=== PATIENT | male | born 1955 | race Caucasian/White ===

== ENCOUNTER 2021-10-09 10:17 | Outpatient (CLI) | payer MEDICARE | END 2021-10-09 10:18 | disposition home or self-care (01) | LOC: RAD 10:17 | PROVIDERS: ATTEND Internal Medicine Critical Care Medicine | DX: R06.00 Dyspnea, unspecified (principal) | CPT/HCPCS: 71046 ==

== ENCOUNTER 2022-01-31 10:48 | Outpatient (CLI) | payer MEDICARE ==
[2022-01-31 12:47] LABS: #Eosinphils 0.2 10x3/uL (0.0-0.5); #Monocytes 0.6 10x3/uL (0.0-1.1); #Neutrophils 5.9 10x3/uL (1.5-8.4); %Basophils 0.3 % (0.0-2.0); %Eosinophils 2.6 % (0.0-6.0); %Lymphocytes 21.5 % (18.0-47.0); %Monocytes 6.6 % (0.0-10.0); %Neutrophils 68.1 % (40.0-75.0); Hemoglobin 14.7 g/dL (13.5-17.5); Mean Corpuscular HGB CONC 32.5 g/dL (32.0-36.0); Mean Corpuscular Hemoglobin 28.3 pg (27.0-33.0); Mean Corpuscular Volume 87.3 fl (81.2-95.1); Mean Platelet Volume 10.3 fl (7.4-10.4); Platelet Count 274 10x3/uL (150-450); Red Blood Cell (RBC) Count 5.19 10x6/uL (4.32-5.72); White Blood Cell (WBC) Count 8.6 10x3/uL (3.5-10.5)
[2022-01-31 12:53] LABS: Prothrombin Time 10.6 sec (9.5-12.1)
[2022-01-31 13:12] LABS: Anion Gap 15 mmol/L (10-20); BUN (Urea Nitrogen) 13 mg/dL (8.4-25.7); Calc. Creatinine Clearance 0 mL/min (70-130); Calcium 9.8 mg/dL (7.8-10.44); Carbon Dioxide 24 mmol/L (23-31); Chloride 105 mmol/L (98-107); Estimated GFR 95; Glucose 98 mg/dL (80-115); Potassium 4.8 mmol/L (3.5-5.1); Sodium 139 mmol/L (136-145)
== END 2022-01-31 10:49 | disposition home or self-care (01) ==
LOC: LABBT 10:48
PROVIDERS: ATTEND Orthopaedic Surgery
DX: Z01.818 Encounter for other preprocedural examination (principal); M17.32 Unilateral post-traumatic osteoarthritis, left knee; Z20.822 Contact with and (suspected) exposure to COVID-19
CPT/HCPCS: 80048; 85025; 85610; 87081; 87811; 93005; 93010

== ENCOUNTER 2022-02-04 05:33 | Inpatient (IN) | payer OTHER, MEDICARE ==
[2022-01-31 14:37] VITALS: BMI 36.6
[2022-02-04] MEDS ORDERED: Tranexamic Acid 1,000 MG/10 ML VIAL ONE (06:08)
[2022-02-04] MEDS ORDERED: Sodium Chloride 0.9% 100 ML ONE ×2 (06:08→06:51)
[2022-02-04] MEDS ORDERED: fentaNYL Citrate/PF 100 MCG/2 ML SYRINGE ONE ×2 (06:11→08:15)
[2022-02-04] MEDS ORDERED: VANCOMYCIN 2 GRAM/500 ML BAG 2 GM in Premix Bag 1 BAG IVPB SCH ×2 (06:15→20:00)
[2022-02-04] MEDS ORDERED: Bupivacaine PF 0.5% 30 ML VIAL ONE (06:27)
[2022-02-04] MEDS ORDERED: Promethazine HCl 25 MG/ML VIAL IM PRN ×3 (06:36→09:04)
[2022-02-04] MEDS ORDERED: Promethazine HCl 25 MG/ML VIAL IVPB PRN (06:36)
[2022-02-04] MEDS ORDERED: Morphine Sulfate 2 MG/ML SYRINGE SLOW IVP PRN (06:36)
[2022-02-04] MEDS ORDERED: Ondansetron HCl/PF 4 MG/2 ML Vial IVP PRN (06:36)
[2022-02-04] MEDS ORDERED: HYDROmorphone 2 MG/ML VIAL SLOW IVP PRN (06:36)
[2022-02-04] MEDS ORDERED: Ketorolac Tromethamine 30 MG/ML VIAL IVP PRN (06:36)
[2022-02-04] MEDS ORDERED: Meperidine HCl/PF 25 MG/ML VIAL SLOW IVP PRN ×2 (06:36)
[2022-02-04] MEDS ORDERED: Midazolam HCl 2 mg/2 ml Vial ONE (06:39)
[2022-02-04] MEDS ORDERED: Fentanyl 100 MCG/2 ML VIAL ONE ×2 (06:39→10:05)
[2022-02-04] MEDS ORDERED: PROPOFOL 200 MG/20 ML VIAL ONE (06:42)
[2022-02-04] MEDS ORDERED: Lidocaine 1% MPF 2 ML VIAL ONE (06:42)
[2022-02-04] MEDS ORDERED: Ondansetron PF 4 MG/2 ML Vial ONE (06:42)
[2022-02-04] MEDS ORDERED: Bupivacaine HCl 0.5%/Epinephrine 1:200,000/PF 30 ml Vial ONE (06:42)
[2022-02-04] MEDS ORDERED: Dexamethasone 20 MG/5 ML VIAL ONE (06:42)
[2022-02-04] MEDS ORDERED: Levofloxacin 500 mg/D5W 100 ml Premix Bag ONE (06:51)
[2022-02-04] MEDS ORDERED: CEFAZOLIN 2 GM VIAL ONE (06:51)
[2022-02-04] MEDS ORDERED: Fentanyl 100 MCG/2 ML VIAL IV PRN (07:06)
[2022-02-04] MEDS ORDERED: Ropivacaine 0.2% 550 ML 550 ML NERVE BLCK SCH (07:15)
[2022-02-04] MEDS ORDERED: HYDROcodone/Acetaminophen 10/325 mg Tablet PO PRN (07:15)
[2022-02-04] MEDS ORDERED: traMADol HCl 50 MG TAB PO PRN ×2 (07:15)
[2022-02-04] MEDS ORDERED: Ondansetron PF 4 MG/2 ML Vial IVP PRN ×2 (07:15→09:04)
[2022-02-04] MEDS ORDERED: Zolpidem Tartrate 5 MG TAB PO PRN ×2 (07:15→09:04)
[2022-02-04] MEDS ORDERED: Acetaminophen 325 MG TAB PO PRN (09:04)
[2022-02-04] MEDS ORDERED: diphenhydrAMINE 25 MG CAP PO PRN (09:04)
[2022-02-04] MEDS ORDERED: Aspirin 81 mg Enteric Coated Tablet PO SCH (10:00)
[2022-02-04] MEDS: Ketorolac Tromethamine 30 MG/ML VIAL IVP SCH ×2 (12:41→17:40)
[2022-02-04] MEDS: Sodium Chloride 0.9% 1,000 ML IV SCH ×2 (12:43→18:49)
[2022-02-04] MEDS ORDERED: Dextrose 50% Abboject 50 ML SYRINGE SLOW IVP PRN (12:44)
[2022-02-04] MEDS ORDERED: Dextrose 5% in Water 1,000 ML IV PRN (12:44)
[2022-02-04] MEDS ORDERED: HumaLOG 300 UNITS/3 ML VIAL SC PRN (12:44)
[2022-02-04] MEDS ORDERED: Amlodipine 10 MG TAB PO SCH (12:45)
[2022-02-04] MEDS ORDERED: Labetalol HCl 100 MG/20 ML VIAL SLOW IVP PRN (13:16)
[2022-02-04] MEDS ORDERED: Albuterol Sulfate 2.5 mg/3 ml Neb NEB PRN (13:16)
[2022-02-04] MEDS ORDERED: Pioglitazone HCl 45 MG TAB PO SCH (13:30)
[2022-02-04] MEDS ORDERED: Insulin Glargine 30 UNITS/0.3 ML VIAL SC SCH (13:30)
[2022-02-04] MEDS ORDERED: Polyethylene Glycol 3350 17 GM Packet PO SCH (13:30)
[2022-02-04] MEDS: CEFAZOLIN 2 GM in Sodium Chloride 0.9% 100 ML IVPB SCH (13:37)
[2022-02-04] MEDS: metFORMIN 500 MG TAB PO SCH (17:40)
[2022-02-04] MEDS: Aspirin 81 mg Enteric Coated Tablet PO SCH (20:16)
[2022-02-04] MEDS: HYDROcodone/Acetaminophen 10/325 mg Tablet PO PRN (20:24)
[2022-02-04] MEDS: Atorvastatin Calcium 20 MG TAB PO SCH (20:34)
[2022-02-05] MEDS: CEFAZOLIN 2 GM in Sodium Chloride 0.9% 100 ML IVPB SCH (01:09)
[2022-02-05] MEDS: Ketorolac Tromethamine 30 MG/ML VIAL IVP SCH ×4 (01:10→17:02)
[2022-02-05 06:03] LABS: Mean Corpuscular HGB CONC 32.7 g/dL (32.0-36.0); Mean Corpuscular Hemoglobin 29.8 pg (27.0-31.0); Mean Corpuscular Volume 91.1 fL (78.0-98.0); Platelet Count 202 thou/uL (130-400); RBC Distribution Width 12.9 % (11.5-14.5); Red Blood Cell (RBC) Count 4.05 mill/uL (4.70-6.10); White Blood Cell (WBC) Count 10.4 thou/uL (4.8-10.8)
[2022-02-05 06:23] LABS: Anion Gap 12 mmol/L (10-20); BUN (Urea Nitrogen) 13 mg/dL (8.4-25.7); Calc. Creatinine Clearance 162 mL/min (70-130); Calcium 8.9 mg/dL (7.8-10.44); Carbon Dioxide 24 mmol/L (23-31); Chloride 106 mmol/L (98-107); Estimated GFR 96; Glucose 154 mg/dL (80-115); Potassium 4.3 mmol/L (3.5-5.1); Sodium 138 mmol/L (136-145)
[2022-02-05] MEDS: Sodium Chloride 0.9% 1,000 ML IV SCH ×2 (06:28→15:20)
[2022-02-05] MEDS: Mometasone 200 MCG/Formoterol 5 MCG 120 PUFF INHALER INH SCH ×2 (06:57→18:48)
[2022-02-05] MEDS: Multivitamin W/ Minerals 1 TAB PO SCH ×2 (08:40→09:20)
[2022-02-05] MEDS: Aspirin 81 mg Enteric Coated Tablet PO SCH ×2 (08:41→21:30)
[2022-02-05] MEDS: metFORMIN 500 MG TAB PO SCH ×2 (08:41→17:01)
[2022-02-05] MEDS: Ferrous Gluconate 324 MG TAB PO SCH ×2 (08:41→17:01)
[2022-02-05] MEDS: HYDROcodone/Acetaminophen 10/325 mg Tablet PO PRN ×2 (08:42→15:16)
[2022-02-05] MEDS: Verapamil 80 MG TAB PO SCH (08:42)
[2022-02-05] MEDS: Senokot S 8.6-50 MG TAB PO SCH ×2 (08:42→21:30)
[2022-02-05] MEDS: Insulin Glargine 30 UNITS/0.3 ML VIAL SC SCH (08:45)
[2022-02-05] MEDS: Amlodipine 10 MG TAB PO SCH (09:19)
[2022-02-05] MEDS: Pioglitazone HCl 45 MG TAB PO SCH (09:20)
[2022-02-05] MEDS: Lisinopril 20 MG TAB PO SCH (09:20)
[2022-02-05] MEDS: Polyethylene Glycol 3350 17 GM Packet PO SCH (09:20)
[2022-02-05] MEDS ORDERED: BREO INH SCH (15:00)
[2022-02-05] MEDS: Atorvastatin Calcium 20 MG TAB PO SCH (21:30)
[2022-02-06] MEDS: Sodium Chloride 0.9% 1,000 ML IV SCH ×2 (00:03→12:15)
[2022-02-06] MEDS: Ketorolac Tromethamine 30 MG/ML VIAL IVP SCH ×2 (00:04→05:28)
[2022-02-06 05:47] LABS: Hemoglobin 12.3 g/dL (14.0-18.0); Mean Corpuscular HGB CONC 32.7 g/dL (32.0-36.0); Mean Corpuscular Hemoglobin 29.7 pg (27.0-31.0); Mean Corpuscular Volume 90.8 fL (78.0-98.0); Mean Platelet Volume 7.8 fL (7.4-10.4); Platelet Count 197 thou/uL (130-400); Red Blood Cell (RBC) Count 4.13 mill/uL (4.70-6.10); White Blood Cell (WBC) Count 8.7 thou/uL (4.8-10.8)
[2022-02-06 06:21] VITALS: TEMP 98.6
[2022-02-06] MEDS: Lisinopril 20 MG TAB PO SCH (07:18)
[2022-02-06] MEDS: Amlodipine 10 MG TAB PO SCH (07:18)
[2022-02-06] MEDS: Pioglitazone HCl 45 MG TAB PO SCH (07:19)
[2022-02-06] MEDS: Mometasone 200 MCG/Formoterol 5 MCG 120 PUFF INHALER INH SCH (07:26)
[2022-02-06] MEDS: Multivitamin W/ Minerals 1 TAB PO SCH ×2 (07:28→07:41)
[2022-02-06] MEDS: HYDROcodone/Acetaminophen 10/325 mg Tablet PO PRN ×2 (07:29→13:26)
[2022-02-06] MEDS: Ferrous Gluconate 324 MG TAB PO SCH (07:30)
[2022-02-06] MEDS: metFORMIN 500 MG TAB PO SCH (07:30)
[2022-02-06] MEDS: Senokot S 8.6-50 MG TAB PO SCH (07:31)
[2022-02-06] MEDS: Insulin Glargine 30 UNITS/0.3 ML VIAL SC SCH (07:31)
[2022-02-06] MEDS: Aspirin 81 mg Enteric Coated Tablet PO SCH (07:31)
[2022-02-06] MEDS: Polyethylene Glycol 3350 17 GM Packet PO SCH (07:41)
[2022-02-06] MEDS ORDERED: hydrALAZINE 25 MG TAB PO PRN (08:11)
[2022-02-06] MEDS ORDERED: BREO INH SCH (09:00)
[2022-02-06] MEDS: Verapamil 80 MG TAB PO SCH (09:49)
[2022-02-06 12:11] VITALS: BP 153/67
== END 2022-02-06 15:00 | disposition home or self-care (01) | DRG 470 ==
LOC: SDC 05:33 → EDSTATUS 10:45 → SURG B 10:56 → OBSVTOIN 02-05 07:25
PROVIDERS: ADMIT Orthopaedic Surgery; ATTEND Orthopaedic Surgery
PROC: 0SRC0J9 Replacement of Right Knee Joint with Synthetic Substitute, Cemented, Open Approach (ICD-10-PCS; principal; 2022-02-05)
PROC: 0SPC04Z Removal of Internal Fixation Device from Right Knee Joint, Open Approach (ICD-10-PCS; 2022-02-05)
DX: M17.31 Unilateral post-traumatic osteoarthritis, right knee (principal); I10 Essential (primary) hypertension; N40.0 Benign prostatic hyperplasia without lower urinary tract symptoms; I48.0 Paroxysmal atrial fibrillation; E11.9 Type 2 diabetes mellitus without complications; E78.5 Hyperlipidemia, unspecified; J44.9 Chronic obstructive pulmonary disease, unspecified; G47.33 Obstructive sleep apnea (adult) (pediatric); M81.0 Age-related osteoporosis without current pathological fracture; E66.9 Obesity, unspecified; Z79.4 Long term (current) use of insulin; Z68.36 Body mass index [BMI] 36.0-36.9, adult; Z87.891 Personal history of nicotine dependence; Z79.84 Long term (current) use of oral hypoglycemic drugs; Z79.899 Other long term (current) drug therapy; Z79.82 Long term (current) use of aspirin; Z98.1 Arthrodesis status
CPT/HCPCS: 36415; 36416; 80048; 85027; 94640; 96365; 96366; 96367; 96375; 96376; A4306; C1713; C1776; G0378; J0690; J1100; J1815; J1885; J1956; J2250; J2405; J2704; J2795; J3010; J3370; J3490; J7050; J7611; J7620; S0020

== ENCOUNTER 2022-02-11 17:40 | Inpatient (IN) | payer OTHER, MEDICARE ==
[~2022-02-11 17:40] MED LIST: Iopamidol-370 76% 500 ML 1 ML ONE
[2022-02-11 18:27] LABS: #Eosinphils 0.1 thou/uL (0.0-0.7); #Lymphocytes 1.3 thou/uL (1.20-3.40); #Monocytes 0.8 thou/uL (0.11-0.59); #Neutrophils 8.2 thou/uL (1.40-6.50); %Basophils 0.4 % (0.0-1.0); %Eosinophils 1.1 % (0.0-10.0); %Lymphocytes 12.5 % (21.0-51.0); %Monocytes 7.3 % (0.0-10.0); %Neutrophils 78.7 % (42.0-75.0); Hemoglobin 12.6 g/dL (14.0-18.0); Mean Corpuscular HGB CONC 32.1 g/dL (32.0-36.0); Mean Corpuscular Hemoglobin 28.9 pg (27.0-31.0); Mean Corpuscular Volume 90.3 fL (78.0-98.0); Mean Platelet Volume 7.6 fL (7.4-10.4); Platelet Count 325 thou/uL (130-400); RBC Distribution Width 13.1 % (11.5-14.5); Red Blood Cell (RBC) Count 4.37 mill/uL (4.70-6.10); White Blood Cell (WBC) Count 10.4 thou/uL (4.8-10.8)
[2022-02-11 18:51] LABS: ALT (SGPT) 33 U/L (8-55); AST (SGOT) 21 U/L (5-34); Albumin 3.9 g/dL (3.4-4.8); Alkaline Phosphatase 71 U/L (40-110); Anion Gap 17 mmol/L (10-20); BUN (Urea Nitrogen) 21 mg/dL (8.4-25.7); Bilirubin, Total 0.8 mg/dL (0.2-1.2); Calc. Creatinine Clearance 0 mL/min (70-130); Calcium 10.1 mg/dL (7.8-10.44); Carbon Dioxide 21 mmol/L (23-31); Chloride 104 mmol/L (98-107); Estimated GFR 86; Globulin 3.1 g/dL (2.4-3.5); Glucose 129 mg/dL (80-115); Lipase 79 U/L (8-78); Magnesium 1.7 mg/dL (1.6-2.6); Potassium 4.5 mmol/L (3.5-5.1); Sodium 137 mmol/L (136-145)
[2022-02-11] MEDS ORDERED: Ketorolac Tromethamine 30 MG/ML VIAL ONE (19:16)
[2022-02-11] MEDS ORDERED: Morphine 4 MG/ML VIAL ONE (19:16)
[2022-02-11] MEDS ORDERED: cefTRIAXone\\ROCEPHIN 1 GM VIAL ONE (22:07)
[2022-02-11] MEDS ORDERED: methylPREDNISolone Sod Succ/PF 125 MG/2 ML VIAL ONE (22:07)
[2022-02-11 22:08] LABS: Bilirubin Negative (Negative); Blood, Urine Negative (Negative); Clarity Clear (Clear); Glucose, Urine (Dipstick) Normal (Negative); Ketone, Urine Negative (Negative); Leukocyte Negative Leu/uL (Negative); Nitrite Negative (Negative); Protein, Urine (Dipstick) 20 mg/dL (Neg-Trace); pH, Urine 5.5 (5.0-9.0)
[2022-02-11 22:09] LABS: Specific Gravity, Urine 1.052 (1.002-1.036)
[2022-02-11] MEDS ORDERED: Acetaminophen 325 MG TAB PO PRN (22:38)
[2022-02-11] MEDS ORDERED: Ondansetron PF 4 MG/2 ML Vial IVP PRN (22:38)
[2022-02-11] MEDS ORDERED: Dextrose 5% in Water 1,000 ML IV PRN (22:39)
[2022-02-11] MEDS ORDERED: HumaLOG 300 UNITS/3 ML VIAL SC PRN (22:39)
[2022-02-11] MEDS ORDERED: Dextrose 50% Abboject 50 ML SYRINGE SLOW IVP PRN (22:39)
[2022-02-11] MEDS ORDERED: methylPREDNISolone Sod Succ/PF 125 MG/2 ML VIAL IVP SCH (23:00)
[2022-02-11] MEDS ORDERED: VANCOMYCIN 2 GRAM/500 ML BAG 2 GM in Premix Bag 1 BAG IVPB SCH (23:30)
[2022-02-11 23:34] LABS: Troponin I Less than 0.010 ng/mL (< 0.028)
[2022-02-12 05:28] LABS: #Lymphocytes 0.8 thou/uL (1.20-3.40); #Monocytes 0.1 thou/uL (0.11-0.59); %Basophils 0.2 % (0.0-1.0); %Eosinophils 0.4 % (0.0-10.0); %Lymphocytes 7.8 % (21.0-51.0); %Monocytes 1.3 % (0.0-10.0); %Neutrophils 90.3 % (42.0-75.0); Hemoglobin 11.7 g/dL (14.0-18.0); Mean Corpuscular HGB CONC 32.6 g/dL (32.0-36.0); Mean Corpuscular Hemoglobin 29.6 pg (27.0-31.0); Mean Corpuscular Volume 90.8 fL (78.0-98.0); Mean Platelet Volume 7.4 fL (7.4-10.4); Platelet Count 298 thou/uL (130-400); RBC Distribution Width 12.7 % (11.5-14.5); Red Blood Cell (RBC) Count 3.95 mill/uL (4.70-6.10)
[2022-02-12 05:49] LABS: Anion Gap 14 mmol/L (10-20); BUN (Urea Nitrogen) 19 mg/dL (8.4-25.7); Calc. Creatinine Clearance 157 mL/min (70-130); Calcium 9.5 mg/dL (7.8-10.44); Carbon Dioxide 22 mmol/L (23-31); Chloride 103 mmol/L (98-107); Estimated GFR 96; Glucose 233 mg/dL (80-115); Potassium 4.8 mmol/L (3.5-5.1); Sodium 134 mmol/L (136-145)
[2022-02-12] MEDS ORDERED: Aspirin Chewable 81 MG TAB ONE (08:22)
[2022-02-12] MEDS ORDERED: Enoxaparin Sodium 40 MG/0.4 ML SYRINGE ONE (08:22)
[2022-02-12] MEDS ORDERED: traMADol HCl 50 MG TAB ONE (08:22)
[2022-02-12] MEDS: Docusate 100 MG CAP PO SCH ×2 (08:27→20:37)
[2022-02-12] MEDS: traMADol HCl 50 MG TAB PO PRN ×2 (08:29→17:58)
[2022-02-12] MEDS: Enoxaparin Sodium 40 MG/0.4 ML SYRINGE SC SCH (08:32)
[2022-02-12] MEDS ORDERED: Aspirin 81 mg Enteric Coated Tablet PO SCH (09:00)
[2022-02-12] MEDS: Polyethylene Glycol 3350 17 GM Packet PO SCH (09:05)
[2022-02-12] MEDS: HumaLOG 300 UNITS/3 ML VIAL SC PRN ×3 (09:38→20:42)
[2022-02-12] MEDS ORDERED: HumaLOG 300 UNITS/3 ML VIAL ONE (09:41)
[2022-02-12] MEDS ORDERED: Magnesium 2 GM/50 ML(in water) 2 GM in Premix Bag 1 BAG IVPB SCH (09:45)
[2022-02-12] MEDS ORDERED: Magnesium 2 GM/50 ML BAG (IN WATER) ONE (10:49)
[2022-02-12] MEDS: VANCOMYCIN 2 GRAM/500 ML BAG 2 GM in Premix Bag 1 BAG IVPB SCH (13:00)
[2022-02-12] MEDS ORDERED: Albuterol 200 PUFF (6.7GM INHALER) INH PRN (13:00)
[2022-02-12] MEDS ORDERED: cefTRIAXone\\ROCEPHIN 2 GM VIAL ONE (14:16)
[2022-02-12] MEDS ORDERED: Dexamethasone 10 MG/ML VIAL ONE (14:17)
[2022-02-12] MEDS ORDERED: Dexamethasone 10 MG/ML VIAL SLOW IVP SCH (14:30)
[2022-02-12 15:51] VITALS: BMI 37.8
[2022-02-12] MEDS ORDERED: Verapamil 80 MG TAB PO SCH (17:10)
[2022-02-12] MEDS: Mometasone 200 MCG/Formoterol 5 MCG 120 PUFF INHALER INH SCH (20:36)
[2022-02-12] MEDS: guaiFENesin 200 MG TAB PO PRN (20:36)
[2022-02-12] MEDS: Aspirin 81 mg Enteric Coated Tablet PO SCH (20:37)
[2022-02-12] MEDS: Atorvastatin Calcium 20 MG TAB PO SCH (20:37)
[2022-02-12] MEDS: cefTRIAXone\\ROCEPHIN 2 GM in Sodium Chloride 0.9% 100 ML IVPB SCH (22:53)
[2022-02-13] MEDS: VANCOMYCIN 2 GRAM/500 ML BAG 2 GM in Premix Bag 1 BAG IVPB SCH ×3 (00:12→23:50)
[2022-02-13] MEDS: traMADol HCl 50 MG TAB PO PRN ×4 (01:33→23:52)
[2022-02-13 01:49] LABS: #Lymphocytes 1.1 thou/uL (1.20-3.40); #Monocytes 0.6 thou/uL (0.11-0.59); %Basophils 0.1 % (0.0-1.0); %Eosinophils 0.2 % (0.0-10.0); %Lymphocytes 10.6 % (21.0-51.0); %Monocytes 5.2 % (0.0-10.0); %Neutrophils 83.9 % (42.0-75.0); Hemoglobin 11.5 g/dL (14.0-18.0); Mean Corpuscular HGB CONC 33.2 g/dL (32.0-36.0); Mean Corpuscular Volume 90.4 fL (78.0-98.0); Mean Platelet Volume 7.2 fL (7.4-10.4); Platelet Count 295 thou/uL (130-400); RBC Distribution Width 12.7 % (11.5-14.5); Red Blood Cell (RBC) Count 3.82 mill/uL (4.70-6.10); White Blood Cell (WBC) Count 10.8 thou/uL (4.8-10.8)
[2022-02-13 02:15] LABS: Anion Gap 14 mmol/L (10-20); BUN (Urea Nitrogen) 17 mg/dL (8.4-25.7); Calc. Creatinine Clearance 181 mL/min (70-130); Calcium 9.2 mg/dL (7.8-10.44); Carbon Dioxide 25 mmol/L (23-31); Chloride 103 mmol/L (98-107); Estimated GFR 99; Glucose 200 mg/dL (80-115); Potassium 4.5 mmol/L (3.5-5.1); Sodium 137 mmol/L (136-145)
[2022-02-13 02:20] LABS: Troponin I Less than 0.010 ng/mL (< 0.028)
[2022-02-13] MEDS: Mometasone 200 MCG/Formoterol 5 MCG 120 PUFF INHALER INH SCH ×2 (04:54→18:50)
[2022-02-13] MEDS: Insulin Glargine 30 UNITS/0.3 ML VIAL SC SCH (08:41)
[2022-02-13] MEDS: Ascorbic Acid 500 mg Chewable Tablet PO SCH (08:44)
[2022-02-13] MEDS: Fish Oil 1,000 MG CAP PO SCH (08:44)
[2022-02-13] MEDS: Enoxaparin Sodium 40 MG/0.4 ML SYRINGE SC SCH (08:44)
[2022-02-13] MEDS: Docusate 100 MG CAP PO SCH ×2 (08:44→21:50)
[2022-02-13] MEDS: Lisinopril 20 MG TAB PO SCH (08:44)
[2022-02-13] MEDS: Aspirin 81 mg Enteric Coated Tablet PO SCH ×2 (08:44→21:50)
[2022-02-13] MEDS: Amlodipine 10 MG TAB PO SCH (08:44)
[2022-02-13] MEDS: Polyethylene Glycol 3350 17 GM Packet PO SCH (08:45)
[2022-02-13] MEDS: Zinc Sulfate 220 MG CAP PO SCH (08:45)
[2022-02-13] MEDS: guaiFENesin 200 MG TAB PO PRN ×2 (08:58→18:52)
[2022-02-13] MEDS ORDERED: Dexamethasone 10 MG/ML VIAL SLOW IVP SCH (09:00)
[2022-02-13] MEDS: Verapamil 80 MG TAB PO SCH (09:46)
[2022-02-13 11:14] LABS: Vancomycin, Trough 11.2 ug/mL
[2022-02-13] MEDS: HumaLOG 300 UNITS/3 ML VIAL SC PRN (12:26)
[2022-02-13] MEDS: Atorvastatin Calcium 20 MG TAB PO SCH (21:50)
[2022-02-13] MEDS: cefTRIAXone\\ROCEPHIN 2 GM in Sodium Chloride 0.9% 100 ML IVPB SCH (21:50)
[2022-02-14 05:15] LABS: #Eosinphils 0.1 thou/uL (0.0-0.7); #Lymphocytes 1.8 thou/uL (1.20-3.40); #Monocytes 0.8 thou/uL (0.11-0.59); #Neutrophils 7.7 thou/uL (1.40-6.50); %Basophils 0.3 % (0.0-1.0); %Lymphocytes 17.4 % (21.0-51.0); %Monocytes 7.5 % (0.0-10.0); %Neutrophils 73.9 % (42.0-75.0); Hemoglobin 12.1 g/dL (14.0-18.0); Mean Corpuscular HGB CONC 33.4 g/dL (32.0-36.0); Mean Corpuscular Hemoglobin 30.4 pg (27.0-31.0); Mean Corpuscular Volume 91.2 fL (78.0-98.0); Mean Platelet Volume 7.2 fL (7.4-10.4); Platelet Count 325 thou/uL (130-400); RBC Distribution Width 12.6 % (11.5-14.5); Red Blood Cell (RBC) Count 3.98 mill/uL (4.70-6.10); White Blood Cell (WBC) Count 10.4 thou/uL (4.8-10.8)
[2022-02-14 05:33] LABS: Anion Gap 12 mmol/L (10-20); BUN (Urea Nitrogen) 16 mg/dL (8.4-25.7); Calc. Creatinine Clearance 194 mL/min (70-130); Calcium 9.3 mg/dL (7.8-10.44); Carbon Dioxide 25 mmol/L (23-31); Chloride 102 mmol/L (98-107); Estimated GFR 101; Glucose 113 mg/dL (80-115); Potassium 4.1 mmol/L (3.5-5.1); Sodium 135 mmol/L (136-145)
[2022-02-14] MEDS: Mometasone 200 MCG/Formoterol 5 MCG 120 PUFF INHALER INH SCH (06:28)
[2022-02-14] MEDS: Polyethylene Glycol 3350 17 GM Packet PO SCH (08:13)
[2022-02-14] MEDS: Enoxaparin Sodium 40 MG/0.4 ML SYRINGE SC SCH (08:14)
[2022-02-14] MEDS: Fish Oil 1,000 MG CAP PO SCH (08:14)
[2022-02-14] MEDS: Aspirin 81 mg Enteric Coated Tablet PO SCH (08:14)
[2022-02-14] MEDS: Verapamil 80 MG TAB PO SCH (08:14)
[2022-02-14] MEDS: Lisinopril 20 MG TAB PO SCH (08:14)
[2022-02-14] MEDS: Docusate 100 MG CAP PO SCH (08:14)
[2022-02-14] MEDS: Amlodipine 10 MG TAB PO SCH (08:14)
[2022-02-14] MEDS: Ascorbic Acid 500 mg Chewable Tablet PO SCH (08:14)
[2022-02-14] MEDS: Insulin Glargine 30 UNITS/0.3 ML VIAL SC SCH (08:15)
[2022-02-14] MEDS: Zinc Sulfate 220 MG CAP PO SCH (08:15)
[2022-02-14] MEDS: traMADol HCl 50 MG TAB PO PRN (10:59)
[2022-02-14 11:59] VITALS: BP 142/73; TEMP 98.1
[2022-02-14] MEDS: VANCOMYCIN 2 GRAM/500 ML BAG 2 GM in Premix Bag 1 BAG IVPB SCH (12:08)
== END 2022-02-14 14:02 | disposition home or self-care (01) | DRG 178 ==
LOC: ERS 17:40 → ERHOLD 22:40 → 2SW 02-12 14:54 → OBSVTOIN 02-13 10:31
PROVIDERS: ADMIT Internal Medicine; ATTEND Internal Medicine
PROC: 8E0ZXY6 Isolation (ICD-10-PCS; principal; 2022-02-13)
DX: U07.1 COVID-19 (principal); I48.20 Chronic atrial fibrillation, unspecified; I10 Essential (primary) hypertension; E11.9 Type 2 diabetes mellitus without complications; J44.9 Chronic obstructive pulmonary disease, unspecified; G47.33 Obstructive sleep apnea (adult) (pediatric); M19.90 Unspecified osteoarthritis, unspecified site; Z96.652 Presence of left artificial knee joint; K44.9 Diaphragmatic hernia without obstruction or gangrene; E78.5 Hyperlipidemia, unspecified; E66.01 Morbid (severe) obesity due to excess calories; Z79.899 Other long term (current) drug therapy; Z79.01 Long term (current) use of anticoagulants; Z79.4 Long term (current) use of insulin; Z79.84 Long term (current) use of oral hypoglycemic drugs; Z79.82 Long term (current) use of aspirin; Z87.891 Personal history of nicotine dependence; Z68.37 Body mass index [BMI] 37.0-37.9, adult
CPT/HCPCS: 36415; 36416; 71045; 71275; 80048; 80053; 80202; 81003; 83605; 83690; 83735; 83880; 84484; 85025; 85379; 86140; 93005; 93306; 93970; 96365; 96372; 96375; 96376; G0378; J0696; J1100; J1650; J1815; J1885; J2270; J2930; J3370; J3475; J3490; J7620; Q9967; U0003; U0005

== ENCOUNTER 2022-06-11 09:49 | Outpatient (CLI) | payer MEDICARE | END 2022-06-11 09:50 | disposition home or self-care (01) | LOC: RAD 09:49 | PROVIDERS: ATTEND Specialist | DX: E66.01 Morbid (severe) obesity due to excess calories (principal) | CPT/HCPCS: 74246 ==

== ENCOUNTER 2022-06-11 13:08 | Outpatient (CLI) | payer OTHER, MEDICARE | END 2022-06-11 13:09 | disposition home or self-care (01) | LOC: DTY/OP 13:08 | PROVIDERS: ATTEND Specialist | DX: E66.01 Morbid (severe) obesity due to excess calories (principal) | CPT/HCPCS: 74246; 97802 ==

== ENCOUNTER 2022-06-19 05:54 | Day surgery (SDC) | payer OTHER, MEDICARE ==
[2022-06-18 11:26] VITALS: BMI 37.2
[2022-06-19] MEDS ORDERED: Lidocaine 1% PF 5 ML VIAL ONE (07:17)
[2022-06-19] MEDS ORDERED: PROPOFOL 200 MG/20 ML VIAL ONE (07:17)
[2022-06-19] MEDS ORDERED: Midazolam HCl 2 mg/2 ml Vial ONE (07:32)
[2022-06-19] MEDS ORDERED: Ketamine 50 MG/ML (10ML VIAL) ONE (07:33)
== END 2022-06-19 09:37 | disposition home or self-care (01) ==
LOC: SDC 05:54
PROVIDERS: ATTEND Internal Medicine
PROC: 0DBP8ZX Excision of Rectum, Via Natural or Artificial Opening Endoscopic, Diagnostic (ICD-10-PCS; principal; 2022-06-19)
PROC: 0DBM8ZX Excision of Descending Colon, Via Natural or Artificial Opening Endoscopic, Diagnostic (ICD-10-PCS; principal; 2022-06-19)
PROC: 0DBL8ZX Excision of Transverse Colon, Via Natural or Artificial Opening Endoscopic, Diagnostic (ICD-10-PCS; principal; 2022-06-19)
PROC: 0DB38ZX Excision of Lower Esophagus, Via Natural or Artificial Opening Endoscopic, Diagnostic (ICD-10-PCS; principal; 2022-06-19)
PROC: 0DBH8ZX Excision of Cecum, Via Natural or Artificial Opening Endoscopic, Diagnostic (ICD-10-PCS; principal; 2022-06-19)
DX: Z12.11 Encounter for screening for malignant neoplasm of colon (principal); D12.0 Benign neoplasm of cecum; D12.3 Benign neoplasm of transverse colon; D12.4 Benign neoplasm of descending colon; K62.1 Rectal polyp; K21.00 Gastro-esophageal reflux disease with esophagitis, without bleeding; K44.9 Diaphragmatic hernia without obstruction or gangrene; K57.30 Diverticulosis of large intestine without perforation or abscess without bleeding; K64.8 Other hemorrhoids; K64.4 Residual hemorrhoidal skin tags; K62.89 Other specified diseases of anus and rectum; R05.3 Chronic cough; E11.9 Type 2 diabetes mellitus without complications; I10 Essential (primary) hypertension; E78.00 Pure hypercholesterolemia, unspecified; G47.30 Sleep apnea, unspecified; E66.9 Obesity, unspecified; Z68.37 Body mass index [BMI] 37.0-37.9, adult; Z87.891 Personal history of nicotine dependence; Z79.4 Long term (current) use of insulin; Z79.82 Long term (current) use of aspirin; Z79.84 Long term (current) use of oral hypoglycemic drugs; Z79.85 Long-term (current) use of injectable non-insulin antidiabetic drugs; Z79.899 Other long term (current) drug therapy
CPT/HCPCS: 36416; 88305; J2250; J2704

== ENCOUNTER 2022-07-02 19:00 | Outpatient (CLI) | payer MEDICARE | END 2022-07-02 19:01 | disposition home or self-care (01) | LOC: SLEEPLAB 19:00 | PROVIDERS: ATTEND Family Medicine | DX: G47.33 Obstructive sleep apnea (adult) (pediatric) (principal); R53.83 Other fatigue; K21.9 Gastro-esophageal reflux disease without esophagitis; R06.83 Snoring; G47.10 Hypersomnia, unspecified; E66.9 Obesity, unspecified; Z68.38 Body mass index [BMI] 38.0-38.9, adult | CPT/HCPCS: 95811 ==

== ENCOUNTER 2022-08-15 10:59 | Day surgery (SDC) | payer OTHER, MEDICARE ==
[2022-08-14 10:02] VITALS: BMI 37.2
[2022-08-15] MEDS ORDERED: Bupivacaine/Epinephrine 0.25% 30 ML VIAL ONE ×2 (11:47→13:26)
[2022-08-15] MEDS ORDERED: Neomycin-Polymyxin 1 ML AMP ONE (11:47)
[2022-08-15] MEDS ORDERED: EPINEPHrine 1 MG/ML AMP ONE (11:47)
[2022-08-15] MEDS ORDERED: SUGAMMADEX SODIUM 200 MG/2 ML VIAL ONE (12:54)
[2022-08-15] MEDS ORDERED: Fentanyl 250 MCG/5 ML VIAL ONE (12:54)
[2022-08-15] MEDS ORDERED: Dexmedetomidine 200 MCG/2 ML VIAL ONE (13:07)
[2022-08-15] MEDS ORDERED: CEFAZOLIN 2 GM VIAL ONE (13:07)
[2022-08-15] MEDS ORDERED: Sodium Chloride 0.9% 100 ML ONE (13:07)
[2022-08-15] MEDS ORDERED: Ondansetron PF 4 MG/2 ML Vial ONE (13:21)
[2022-08-15] MEDS ORDERED: Glycopyrrolate 0.2 MG/ML 5 ML SYRINGE ONE (13:21)
[2022-08-15] MEDS ORDERED: Rocuronium Bromide 10 MG/ML (10ML VIAL) ONE (13:21)
[2022-08-15] MEDS ORDERED: Lidocaine 1% PF 5 ML VIAL ONE (13:21)
[2022-08-15] MEDS ORDERED: Phenylephrine 10 MG/ML VIAL ONE (13:21)
[2022-08-15] MEDS ORDERED: NEOSTIGMINE 3 MG/3 ML SYR 3 MG/3 ML SYRINGE ONE (13:21)
[2022-08-15] MEDS ORDERED: PROPOFOL 200 MG/20 ML VIAL ONE (13:21)
[2022-08-15] MEDS ORDERED: Tranexamic Acid 1,000 MG/10 ML VIAL ONE (14:02)
[2022-08-15] MEDS ORDERED: Bacitracin Zinc Ointment 30 gm TUBE ONE (14:26)
[2022-08-15] MEDS ORDERED: HYDROcodone/Acetaminophen 5/325 mg Tablet ONE (16:00)
== END 2022-08-15 16:45 | disposition home or self-care (01) ==
LOC: SDC 10:59
PROVIDERS: ATTEND Plastic Surgery
PROC: 0HX1XZZ Transfer Face Skin, External Approach (ICD-10-PCS; principal; 2022-08-15)
DX: D03.39 Melanoma in situ of other parts of face (principal); I10 Essential (primary) hypertension; E11.9 Type 2 diabetes mellitus without complications; M19.90 Unspecified osteoarthritis, unspecified site; Z87.891 Personal history of nicotine dependence; Z79.4 Long term (current) use of insulin; Z79.82 Long term (current) use of aspirin; Z79.84 Long term (current) use of oral hypoglycemic drugs; Z79.85 Long-term (current) use of injectable non-insulin antidiabetic drugs; Z79.899 Other long term (current) drug therapy
CPT/HCPCS: 36416; J0171; J3010; J3490

== ENCOUNTER 2022-08-16 11:27 | Emergency (ER) | payer OTHER, MEDICARE ==
[2022-08-16 11:55] LABS: #Eosinphils 0.1 thou/uL (0.0-0.7); #Lymphocytes 0.9 thou/uL (1.20-3.40); #Monocytes 0.6 thou/uL (0.11-0.59); #Neutrophils 10.8 thou/uL (1.40-6.50); %Basophils 0.1 % (0.0-1.0); %Eosinophils 0.5 % (0.0-10.0); %Monocytes 5.1 % (0.0-10.0); %Neutrophils 87.2 % (42.0-75.0); Hemoglobin 14.5 g/dL (14.0-18.0); Mean Corpuscular HGB CONC 33.1 g/dL (32.0-36.0); Mean Corpuscular Hemoglobin 29.3 pg (27.0-31.0); Mean Corpuscular Volume 88.6 fl (78.0-98.0); Mean Platelet Volume 8.2 fL (7.4-10.4); Platelet Count 231 10x3/uL (130-400); RBC Distribution Width 14.1 % (11.5-14.5); Red Blood Cell (RBC) Count 4.95 mill/uL (4.70-6.10); White Blood Cell (WBC) Count 12.4 10x3/uL (4.8-10.8)
[2022-08-16 12:16] LABS: ALT (SGPT) 22 U/L (8-55); AST (SGOT) 17 U/L (5-34); Albumin 4.2 g/dL (3.4-4.8); Alkaline Phosphatase 76 U/L (40-110); Anion Gap 13 mmol/L (10-20); BUN (Urea Nitrogen) 14 mg/dL (8.4-25.7); Bilirubin, Total 0.5 mg/dL (0.2-1.2); Calc. Creatinine Clearance 0 mL/min (70-130); Calcium 9.9 mg/dL (7.8-10.44); Carbon Dioxide 24 mmol/L (23-31); Chloride 104 mmol/L (98-107); Estimated GFR 94; Globulin 3.1 g/dL (2.4-3.5); Glucose 186 mg/dL (80-115); Potassium 4.3 mmol/L (3.5-5.1); Protein, Total 7.3 g/dL (5.8-8.1); Sodium 137 mmol/L (136-145)
[2022-08-16 12:45] LABS: Bacteria/HPF Rare-Few HPF (None Seen); Bilirubin Negative (Negative); Blood, Urine 3+ (Negative); Clarity Cloudy (Clear); Glucose, Urine (Dipstick) Normal (Negative); Ketone, Urine Trace mg/dL (Negative); Leukocyte Negative Leu/uL (Negative); Nitrite Negative (Negative); Protein, Urine (Dipstick) Negative (Neg-Trace); RBC/HPF Greater than 50 HPF (0-3); Specific Gravity, Urine 1.018 (1.002-1.036); Squamous Epithelial 0-3 HPF (0-3); Urobilinogen Normal mg/dL (Less than 2); WBC/HPF None Seen HPF (0-3); pH, Urine 5.5 (5.0-9.0)
== END 2022-08-16 13:47 | disposition home or self-care (01) ==
LOC: ERS 11:27
DX: R33.9 Retention of urine, unspecified (principal); D72.829 Elevated white blood cell count, unspecified; I10 Essential (primary) hypertension; J44.9 Chronic obstructive pulmonary disease, unspecified; E11.9 Type 2 diabetes mellitus without complications; Z79.891 Long term (current) use of opiate analgesic; Z79.82 Long term (current) use of aspirin; Z79.84 Long term (current) use of oral hypoglycemic drugs; Z79.899 Other long term (current) drug therapy; Z79.4 Long term (current) use of insulin
CPT/HCPCS: 36415; 51702; 80053; 81003; 81015; 85025

== ENCOUNTER 2024-05-13 10:54 | Inpatient (IN) | payer MEDICARE ==
[~2024-05-13 10:54] MED LIST changes: -Iopamidol-370 76% 500 ML 1 ML ONE; +Iopamidol-370 76% 500 ML MDV (1 ML CHARGE) ONE
[2024-05-13] MEDS ORDERED: Ondansetron PF 4 MG/2 ML Vial ONE ×2 (11:21→16:10)
[2024-05-13] MEDS ORDERED: Acetaminophen 500 MG TAB ONE (11:21)
[2024-05-13] MEDS ORDERED: Morphine 4 MG/ML VIAL ONE (11:21)
[2024-05-13 11:51] LABS: #Basophils Less than 0.03 10x3/uL (0.0-0.2); #Eosinophils Less than 0.03 10x3/uL (0.0-0.7); %Basophils 0.1 % (0.0-1.0); %Lymphocytes 2.9 % (21.0-51.0); %Neutrophils 90.9 % (42.0-75.0); Hematocrit 44.1 % (42.0-52.0); Hemoglobin 14.8 g/dL (14.0-18.0); Mean Corpuscular HGB CONC 33.6 g/dL (32.0-36.0); Mean Corpuscular Hemoglobin 29.7 pg (27.0-31.0); Mean Corpuscular Volume 88.6 fL (78.0-98.0); Mean Platelet Volume 10.8 fL (7.4-10.4); Platelet Count 227 10x3/uL (130-400); RBC Distribution Width 13.4 % (11.5-14.5); Red Blood Cell (RBC) Count 4.98 mill/uL (4.70-6.10)
[2024-05-13] MEDS ORDERED: Sodium Chloride 0.9% 100 ML ONE ×2 (12:07→18:12)
[2024-05-13] MEDS ORDERED: Piperacillin/Tazobactam 4.5 GM VIAL ONE (12:07)
[2024-05-13 12:22] LABS: ALT (SGPT) 22 U/L (8-55); AST (SGOT) 13 U/L (5-34); Albumin 3.6 g/dL (3.4-4.8); Alkaline Phosphatase 91 U/L (40-110); Anion Gap 15 mmol/L (10-20); BUN (Urea Nitrogen) 9 mg/dL (8.4-25.7); Bilirubin, Total 1.1 mg/dL (0.2-1.2); Calc. Creatinine Clearance 0 mL/min (70-130); Calcium 9.3 mg/dL (7.8-10.44); Carbon Dioxide 21 mmol/L (23-31); Chloride 103 mmol/L (98-107); Estimated GFR 100; Globulin 2.9 g/dL (2.4-3.5); Glucose 210 mg/dL (83-110); Lipase 13 U/L (8-78); Magnesium 1.6 mg/dL (1.6-2.6); Potassium 4.6 mmol/L (3.5-5.1); Protein, Total 6.5 g/dL (5.8-8.1); Sodium 134 mmol/L (136-145)
[2024-05-13 13:07] LABS: Bacteria/HPF None Seen HPF (None Seen); Bilirubin Negative (Negative); Blood, Urine Negative (Negative); CAUTI Indications for Culture Dysuria,urgency,freq; Clarity Clear (Clear); Glucose, Urine (Dipstick) Normal (Negative); Ketone, Urine 20 mg/dL (Negative); Leukocyte Negative Leu/uL (Negative); Nitrite Negative (Negative); Protein, Urine (Dipstick) 50 mg/dL (Neg-Trace); RBC/HPF 0-3 HPF (0-3); Squamous Epithelial None Seen HPF (0-3); WBC/HPF 0-3 HPF (0-3); pH, Urine 6.5 (5.0-9.0)
[2024-05-13 13:11] LABS: Urine Culture Reflex No No
[2024-05-13] MEDS ORDERED: fentaNYL 50 mcg/mL 1 mL Vial ONE ×4 (13:32→18:31)
[2024-05-13] MEDS ORDERED: TETANUS, DIPHTHERIA TOX,ADULT (TDVAX) 0.5 ML VIAL IM ONE (14:58)
[2024-05-13] MEDS ORDERED: Morphine 2 MG/ML VIAL SLOW IVP PRN (14:58)
[2024-05-13] MEDS ORDERED: Ipratropium/Albuterol 3 ML NEB NEB PRN (14:58)
[2024-05-13] MEDS ORDERED: Ondansetron PF 4 MG/2 ML Vial IVP PRN (14:58)
[2024-05-13] MEDS ORDERED: Acetaminophen 325 MG TAB PO PRN (14:58)
[2024-05-13] MEDS ORDERED: Insulin Lispro 100 UNIT/ML 10 ML VIAL SC PRN (15:10)
[2024-05-13] MEDS ORDERED: Glucagon 1 MG/ML KIT IM PRN (15:10)
[2024-05-13] MEDS ORDERED: Dextrose 50% Abboject 50 ML SYRINGE SLOW IVP PRN (15:10)
[2024-05-13] MEDS ORDERED: Dextrose 5% in Water 1,000 ML IV PRN (15:10)
[2024-05-13] MEDS ORDERED: EPINEPHrine 1 MG/ML VIAL ONE (15:58)
[2024-05-13] MEDS ORDERED: Bupivacaine 0.25% HCL 30 ML VIAL ONE (15:59)
[2024-05-13] MEDS ORDERED: PROPOFOL 40 ML ONE (16:10)
[2024-05-13] MEDS ORDERED: SUGAMMADEX SODIUM 200 MG/2 ML VIAL ONE ×2 (16:10→17:25)
[2024-05-13] MEDS ORDERED: Lidocaine 1% PF 5 ML VIAL ONE (16:10)
[2024-05-13] MEDS ORDERED: Dexamethasone 4 mg/ml Vial ONE (16:10)
[2024-05-13] MEDS ORDERED: Rocuronium Bromide 10 MG/ML (10ML VIAL) ONE (16:10)
[2024-05-13] MEDS ORDERED: fentaNYL PF 100 MCG/2 ML SYRINGE ONE (16:10)
[2024-05-13] MEDS ORDERED: PHENYLEPHRINE-NS 100 MCG/ML 10 ML SYRINGE ONE (16:40)
[2024-05-13] MEDS ORDERED: Piperacillin/Tazobactam 3.375 GM VIAL ONE (18:12)
[2024-05-13] MEDS: Piperacillin/Tazobactam 3.375 GM in Sodium Chloride 0.9% 100 ML IVPB SCH (18:16)
[2024-05-13 19:43] VITALS: BMI 28.8
[2024-05-13] MEDS: Famotidine 20 MG TAB PO SCH (20:45)
[2024-05-13] MEDS: Sodium Chloride 0.9% 1,000 ML IV SCH (20:46)
[2024-05-14 05:20] LABS: #Basophils Less than 0.03 10x3/uL (0.0-0.2); #Eosinophils Less than 0.03 10x3/uL (0.0-0.7); %Basophils 0.1 % (0.0-1.0); %Lymphocytes 7.6 % (21.0-51.0); %Monocytes 3.9 % (0.0-10.0); %Neutrophils 87.7 % (42.0-75.0); Hematocrit 37.1 % (42.0-52.0); Hemoglobin 12.4 g/dL (14.0-18.0); Mean Corpuscular HGB CONC 33.4 g/dL (32.0-36.0); Mean Corpuscular Hemoglobin 30.1 pg (27.0-31.0); Mean Platelet Volume 10.7 fL (7.4-10.4); Platelet Count 192 10x3/uL (130-400); RBC Distribution Width 13.5 % (11.5-14.5); Red Blood Cell (RBC) Count 4.12 mill/uL (4.70-6.10)
[2024-05-14 05:41] LABS: Anion Gap 10 mmol/L (10-20); BUN (Urea Nitrogen) 10 mg/dL (8.4-25.7); Calc. Creatinine Clearance 138 mL/min (70-130); Calcium 8.9 mg/dL (7.8-10.44); Carbon Dioxide 23 mmol/L (23-31); Chloride 107 mmol/L (98-107); Estimated GFR 98; Glucose 184 mg/dL (83-110); Potassium 4.1 mmol/L (3.5-5.1); Sodium 136 mmol/L (136-145)
[2024-05-14] MEDS: Amlodipine 10 MG TAB PO SCH (08:03)
[2024-05-14] MEDS: Aspirin 81 mg Enteric Coated Tablet PO SCH (08:03)
[2024-05-14] MEDS ORDERED: Pantoprazole DR 40 MG TAB PO PRN (10:46)
[2024-05-14] MEDS: traMADol HCl 50 MG TAB PO SCH (12:14)
[2024-05-14] MEDS: Piperacillin/Tazobactam 3.375 GM VIAL ONE (14:52)
[2024-05-14] MEDS: traMADol HCl 50 MG TAB PO PRN (20:20)
[2024-05-14] MEDS: Enoxaparin 40 MG (0.4 mL) SYRINGE SC SCH (20:20)
[2024-05-14] MEDS: Cyclobenzaprine 10 MG TAB PO PRN (20:21)
[2024-05-15 08:09] VITALS: BP 124/70; TEMP 98
[2024-05-15 09:31] LABS: #Basophils Less than 0.03 10x3/uL (0.0-0.2); %Basophils 0.2 % (0.0-1.0); %Eosinophils 2.6 % (0.0-10.0); %Lymphocytes 12.6 % (21.0-51.0); %Monocytes 4.9 % (0.0-10.0); %Neutrophils 79.3 % (42.0-75.0); Hematocrit 36.8 % (42.0-52.0); Hemoglobin 12.2 g/dL (14.0-18.0); Mean Corpuscular HGB CONC 33.2 g/dL (32.0-36.0); Mean Corpuscular Hemoglobin 29.8 pg (27.0-31.0); Mean Platelet Volume 10.9 fL (7.4-10.4); Platelet Count 170 10x3/uL (130-400); RBC Distribution Width 13.5 % (11.5-14.5); Red Blood Cell (RBC) Count 4.09 mill/uL (4.70-6.10)
[2024-05-16] MEDS ORDERED: FLU (Fluad Triv) TS24-25 (65UP)/MF59C/PF 45 MCG/0.5 ML Syringe IM ONE (09:00)
== END 2024-05-15 12:01 | disposition home or self-care (01) | DRG 399 ==
LOC: ERS 10:54 → SURG B 17:16 → OBSVTOIN 17:16
PROVIDERS: ADMIT Student in an Organized Health Care Education/Training Program; ATTEND Student in an Organized Health Care Education/Training Program
PROC: 0DTJ4ZZ Resection of Appendix, Percutaneous Endoscopic Approach (ICD-10-PCS; principal; 2024-05-13)
DX: K35.30 Acute appendicitis with localized peritonitis, without perforation or gangrene (principal); J44.9 Chronic obstructive pulmonary disease, unspecified; E11.9 Type 2 diabetes mellitus without complications; I10 Essential (primary) hypertension; Z96.652 Presence of left artificial knee joint; E66.9 Obesity, unspecified; I48.91 Unspecified atrial fibrillation; E78.5 Hyperlipidemia, unspecified; Z68.28 Body mass index [BMI] 28.0-28.9, adult; Z98.84 Bariatric surgery status; Z87.891 Personal history of nicotine dependence
CPT/HCPCS: 36415; 36416; 71045; 74177; 80048; 80053; 81001; 83605; 83690; 83735; 85025; 87040; 87086; 88304; 93005; 96374; 96375; A4649; J0171; J0665; J1100; J1650; J2272; J2405; J2543; J2704; J3010; J7030; Q9967